=== PATIENT | male | born 1975 | race Hispanic/Latino ===

== ENCOUNTER 2017-03-05 20:45 | Observation (INO) | payer OTHER ==
[2017-03-05 21:04] VITALS: RESP 16; TEMP 98.2
[2017-03-05] MEDS ORDERED: Sodium Chloride 0.9% 1,000 ML IV STA (21:16)
[2017-03-05] MEDS ORDERED: Iohexol 240 (50 ml) PO ONE (21:16)
--- NOTE | 2017-03-05 21:22 | ED PDOC ---
HPI: Abdomen Time Seen by Provider: 03/05/17 21:06 Chief Complaint (Nursing): Abdominal Pain Chief Complaint (Provider): Abd pain History Per: Patient ( ) History/Exam Limitations: no limitations Onset/Duration Of Symptoms: Days (2) Current Symptoms Are (Timing): Still Present Additional Complaint(s): Abd pain diffuse. Off and on. No nausea, vomit. No chest pain or dyspnea. No dysuria. No weakness. No diarrhea. No new food or drinks. Past Medical History Reviewed: Nursing Documentation, Vital Signs Vital Signs: Last Vital Signs Temp 98.2 F 03/05/17 21:00 Pulse 108 H 03/05/17 21:00 Resp 16 03/05/17 21:00 BP 116/75 03/05/17 21:00 Pulse Ox 98 03/05/17 21:39 - Medical History PMH: Hypercholesterolemia - Surgical History Surgical History: No Surg Hx - Family History Family History: States: Unknown Family Hx - Living Arrangements Living Arrangements: With Family - Social History Current smoker - smoking cessation education provided: No Alcohol: None Drugs: Denies - Home Medications Home Medications: Ambulatory Orders Medication Instructions Recorded No Known Home Med 03/05/17 - Allergies Allergies/Adverse Reactions: Allergies Allergy/AdvReac Type Severity Reaction Status Date / Time No Known Allergies Allergy Verified 12/30/15 21:59 Review of Systems ROS Statement: Except As Marked, All Systems Reviewed And Found Negative Gastrointestinal: Positive for: Abdominal Pain Physical Exam - Reviewed Nursing Documentation Reviewed: Yes Vital Signs Reviewed: Yes - Physical Exam Appears: Positive for: Non-toxic, No Acute Distress Head Exam: Positive for: ATRAUMATIC, NORMAL INSPECTION, NORMOCEPHALIC Skin: Positive for: Normal Color, Warm, DRY Eye Exam: Positive for: EOMI, Normal appearance, PERRL ENT: Positive for: Normal ENT Inspection Neck: Positive for: Normal, Painless ROM Cardiovascular/Chest: Positive for: Regular Rate, Rhythm Respiratory: Positive for: CNT, Normal Breath Sounds Gastrointestinal/Abdominal: Positive for: Soft, Tenderness (mild diffuse). Negative for: Distended, Guarding Back: Positive for: Normal Inspection. Negative for: L CVA Tenderness, R CVA Tenderness Extremity: Positive for: Normal ROM. Negative for: Tenderness, Pedal Edema Neurologic/Psych: Positive for: Alert, Oriented - Laboratory Results Result Diagrams: 03/05/17 21:29 03/05/17 21:29 - ECG O2 Sat by Pulse Oximetry: 98 ED OBSERVATION Date of observation admission: 03/05/17 Time of observation admission: 21:38 - Observation admission statement Patient is being placed in observation because:: abd pain - Goals of Observation Goals of observation are:: abd pain - Progress Note Progress Note: 03/05/17 23:55 Pt. signed out to Dr. Rae. Fu on CT. Disposition - Clinical Impression Clinical Impression: Abdominal pain - Disposition Disposition: Transfer of Care Disposition Time: 23:56 Condition: STABLE Patient Signed Over To: Fritz Rae
[2017-03-05] MEDS ORDERED: Iohexol 240 (50 ml) ONE (21:31)
[2017-03-05 21:32] LABS: BASO # 0.1 K/uL (0.0-0.2); BASO % 0.6 % (0.0-2.0); EOS # 0.3 K/uL (0.0-0.7); EOS % 2.6 % (0.0-4.0); HEMOGLOBIN 13.6 g/dL (12.0-18.0); LYMPH # 3.5 K/uL (1.0-4.3); LYMPH % 34.6 % (20.0-40.0); MEAN CELL VOLUME 80.2 fl (80.0-94.0); MEAN CORPUSCULAR HEMOGLOBIN 26.2 pg (27.0-31.0); MEAN CORPUSCULAR HGB CONC 32.7 g/dL (33.0-37.0); MEAN PLATELET VOLUME 8.4 fl (7.2-11.7); MONO # 0.9 K/uL (0.0-0.8); MONO % 8.7 % (0.0-10.0); NEUT # 5.3 K/uL (1.8-7.0); NEUT % 53.5 % (50.0-75.0); RBC 5.16 Mil/uL (4.40-5.90); RED CELL DISTRIBUTION WIDTH 13.4 % (11.5-14.5)
[2017-03-05 22:01] LABS: ALB/GLOB RATIO 1.4 (1.0-2.1); ALBUMIN 4.2 g/dL (3.5-5.0); ALT/SGPT 41 U/L (21-72); AST/SGOT 27 U/L (17-59); BLOOD UREA NITROGEN 17 mg/dl (9-20); CALCIUM 9.1 mg/dL (8.4-10.2); GFR AFRICAN-AMERICAN > 60; GFR NON-AFRICAN AMERICAN > 60; LIPASE 68 U/L (23-300)
[2017-03-05] MEDS ORDERED: Sodium Chloride 0.9% 50 ML IV ONE (23:24)
[2017-03-05] MEDS ORDERED: Iohexol 300 100 ML IJ ONE (23:24)
--- NOTE | 2017-03-06 00:02 | ED PDOC ---
- Laboratory Results Result Diagrams: 03/05/17 21:29 03/05/17 21:29 <Mena Marques - Last Filed: 03/06/17 01:08> - Laboratory Results Result Diagrams: 03/05/17 21:29 03/05/17 21:29 - ECG O2 Sat by Pulse Oximetry: 98 (RA) Pulse Ox Interpretation: Normal <Fritz Rae - Last Filed: 03/06/17 02:36> Medical Decision Making <Mena Marques - Last Filed: 03/06/17 01:08> <Fritz Rae - Last Filed: 03/06/17 02:36> Medical Decision Making: Time: 00:00 --Patient was signed out to provider by Dr. Manfred Gallo. Pending CT results and re-evaluation. Time: 47 --CT ABD/Pelvis FINDINGS: Lower thorax: There is a calcified granuloma in the right lower lobe measuring 6 mm on series 2, image 2. There is minimal bibasilar atelectasis. Question tiny hiatal hernia. ABDOMEN: Liver: There is a diffuse decrease in hepatic parenchymal density, consistent with fatty infiltration. There are no focal liver lesions present. Gallbladder and bile ducts: The gallbladder is contracted but otherwise normal. No calcified stones. No ductal dilation. Pancreas: The pancreas is normal. No ductal dilation. Spleen: The spleen is normal. Adrenals: The adrenal glands are normal. Kidneys and ureters: The kidneys are normal. No hydronephrosis. Stomach and bowel: Stomach is predominantly decompressed and grossly unremarkable. There is mild colonic constipation. There is no evidence of intestinal obstruction. No mucosal thickening. Appendix: A normal appendix is identified. PELVIS: Bladder: Bladder is decompressed. Reproductive: The prostate gland and seminal vesicles are normal. ABDOMEN and PELVIS: Intraperitoneal space: There is no evidence of free intraperitoneal fluid. There is no free intraperitoneal air. Bones/joints: No acute fracture. No dislocation. Soft tissues: There are small fat containing bilateral inguinal hernias. Vasculature: The aorta is normal. No abdominal aortic aneurysm. Lymph nodes: There is no evidence of lymphadenopathy. IMPRESSION: No acute findings Time: 0230 Upon provider reevaluation, patient is feeling better, is medically stable and requires no further treatment in the ED at this time. Patient will be discharged home with Rx for Bentyl 20mg and Pepcid 20mg. Counseling was provided and all questions were answered regarding diagnosis and need for follow up with PCP. There is agreement to discharge plan. Return if symptoms persist or worsen. Clinical Impression: Abdominal pain Scribe Attestation: Documented by Destini Grider, acting as a scribe for Fritz Rae MD. Provider Scribe Attestation: All medical record entries made by the Scribe were at my direction and personally dictated by me. I have reviewed the chart and agree that the record accurately reflects my personal performance of the history, physical exam, medical decision making, and the department course for this patient. I have also personally directed, reviewed, and agree with the discharge instructions and disposition. (Fritz Rae) Disposition <Mena Marques - Last Filed: 03/06/17 01:08> Doctor Will See Patient In The: Office Counseled Patient/Family Regarding: Studies Performed, Diagnosis, Need For Followup, Rx Given - POA Present On Arrival: None - Disposition Disposition: Routine/Home Disposition Time: 21:16 <Fritz Rae - Last Filed: 03/06/17 02:36> - Clinical Impression Clinical Impression: Abdominal pain - Disposition Condition: STABLE
--- NOTE | 2017-03-06 00:49 | CT ---
EXAM: CT Abdomen and Pelvis With Intravenous Contrast CLINICAL HISTORY: 41 years old, male; Pain; Abdominal pain; Generalized; Additional info: Abd pain TECHNIQUE: Axial computed tomography images of the abdomen and pelvis with intravenous contrast. All CT scans at this facility use one or more dose reduction techniques, viz.: automated exposure control; ma/kV adjustment per patient size (including targeted exams where dose is matched to indication; i.e. head); or iterative reconstruction technique. Coronal and sagittal reformatted images were created and reviewed. CONTRAST: 95 mL of [id number] administered intravenously. COMPARISON: No relevant prior studies available. FINDINGS: Lower thorax: There is a calcified granuloma in the right lower lobe measuring 6 mm on series 2, image 2. There is minimal bibasilar atelectasis. Question tiny hiatal hernia. ABDOMEN: Liver: There is a diffuse decrease in hepatic parenchymal density, consistent with fatty infiltration. There are no focal liver lesions present. Gallbladder and bile ducts: The gallbladder is contracted but otherwise normal. No calcified stones. No ductal dilation. Pancreas: The pancreas is normal. No ductal dilation. Spleen: The spleen is normal. Adrenals: The adrenal glands are normal. Kidneys and ureters: The kidneys are normal. No hydronephrosis. Stomach and bowel: Stomach is predominantly decompressed and grossly unremarkable. There is mild colonic constipation. There is no evidence of intestinal obstruction. No mucosal thickening. Appendix: A normal appendix is identified. PELVIS: Bladder: Bladder is decompressed. Reproductive: The prostate gland and seminal vesicles are normal. ABDOMEN and PELVIS: Intraperitoneal space: There is no evidence of free intraperitoneal fluid. There is no free intraperitoneal air. Bones/joints: No acute fracture. No dislocation. Soft tissues: There are small fat containing bilateral inguinal hernias. Vasculature: The aorta is normal. No abdominal aortic aneurysm. Lymph nodes: There is no evidence of lymphadenopathy. IMPRESSION: No acute findings.
[2017-03-06 02:05] VITALS: BP 125/80; PULSE 72
[2017-03-06 02:36] VITALS: O2SAT 98
== END 2017-03-06 02:29 | disposition home or self-care (01) ==
LOC: H.ER 20:45 → H.EROBSV 21:16
PROVIDERS: ADMIT Emergency Medicine; ATTEND Emergency Medicine
DX: R10.9 Unspecified abdominal pain (principal); E78.00 Pure hypercholesterolemia, unspecified